=== PATIENT | female | born 1995 | race African-American/Black ===

== ENCOUNTER 2022-05-24 12:31 | Emergency (ER) | payer BC ==
[~2022-05-24] VITALS: Ht 162.5 cm; Wt 90.7 kg
[2022-05-24] MEDS ORDERED: FAMOTIDINE 20 MG (PEPCID) TABLET PO ONE (13:00)
[2022-05-24] MEDS ORDERED: EPINEPHrine INJECTION 1 MG/ML AMP IM ONE (13:00)
[2022-05-24] MEDS ORDERED: diphenhydrAMINE 25 MG TAB (BENADRYL) PO ONE (13:00)
--- NOTE | 2022-05-24 13:05 | ED Integumentary General ---
General Chief Complaint: Allergic Reaction Stated Complaint: ALLERGIC REACTION Source: patient Exam Limitations: no limitations History of Present Illness Date Seen by Provider: May 24, 2022 Time Seen by Provider: 13:02 Initial Comments Patient is a 26-year-old female presents ED with allergic reaction. She states Tuesday she spent the day outside. She is highly allergic to grass , some trees. She states she started to develop a itchy rash on the legs. The spread to the chest, shoulders, face. Reports continue itchiness and rash. Rash is red without any blisters, pustules. she has been taken Benadryl and Zyrtec with very minimal improvement. She noticed some swelling of the extremities. She states she has used her EpiPen in the past 1 year ago. Her EpiPen was . She states she cannot take steroids as it makes it worse. She denies of any bug bites. She denies of any shortness of breath, chest pain, shortness of breath, nausea, vomiting, diarrhea. She is requesting EpiPen as this is the only thing that helps with her severe reaction. Allergies and Home Medications Allergies Coded Allergies: No Known Drug Allergies (Unverified , 05/24/22) Patient Home Medication List Home Medication List Reviewed: Yes Epinephrine (Epipen) 0.3 Mg/0.3 Ml Auto.injct, 0.3 MG IJ ONCE Prescribed by: RICARDO ALFARO on 05/24/22 1450 Review of Systems Review of Systems Constitutional: No chills, No diaphoresis, No malaise, No weakness EENTM: No blurred vision, No double vision Respiratory: No cough, No dyspnea on exertion Cardiovascular: No chest pain Gastrointestinal: No abdominal pain, No diarrhea, No nausea, No vomiting Genitourinary: No decreased output, No discharge Musculoskeletal: No back pain, No joint pain Skin: change in color, pruritus, rash Psychiatric/Neurological: Denies Anxiety, Denies Depressed Endocrine: Denies Flushing All Other Systems Reviewed Negative Unless Noted: Yes Past Gvbqasl-Vwddey-Sfehtk Hx Patient Social History Tobacco Use?: No Use of E-Cig and/or Vaping dev: No Substance use?: No Alcohol Use?: No Pt feels they are or have been: No Immunizations Up To Date Influenza Vaccine Up-to-Date: Yes; Up-to-Date First/Initial COVID19 Vaccinat: declined Physical Exam Vital Signs Vital Signs - First Documented 05/24/22 12:31 Temp 35.7 Pulse 68 Resp 18 B/P (MAP) 117/71 (86) Pulse Ox 98 O2 Delivery Room Air Capillary Refill : General Appearance: WD/WN, no apparent distress HEENT: PERRL/EOMI, normal ENT inspection, TMs normal, pharynx normal Neck: non-tender, full range of motion, supple, normal inspection Cardiovascular: regular rate, rhythm, no edema, no gallop, no JVD, no murmur Respiratory: chest non-tender, lungs clear, normal breath sounds, no respiratory distress, no accessory muscle use Gastrointestinal: normal bowel sounds, non tender, soft, no organomegaly, no pulsatile mass Back: normal inspection, no CVA tenderness Extremities: normal range of motion, non-tender, normal inspection, no pedal edema Neurologic/Psychiatric: esthetician spa II-XII nml as tested, no motor/sensory deficits, a lert, normal mood/affect, oriented x 3 Skin: other (Diffuse erythematous papular macular edematous rash. Noted on the lower extremities, chest, upper back, shoulders and face) Skin Problem Location: generalized Progress/Results/Core Measures Results/Orders My Orders Orders - NIGHAT CONDE Epinephrine 1 Mg Injection (Adrenalin I (05/24/22 13:00) Famotidine Tablet (Pepcid Tablet) (05/24/22 13:00) Diphenhydramine Tablet (Benadryl Tablet) (05/24/22 13:00) Medications Given in ED Current Medications Medications Dose Ordered Sig/Nguyen Route Start Time Stop Time Status Last Admin Dose Admin Diphenhydramine HCl 25 mg ONCE ONCE PO 05/24/22 13:00 05/24/22 13:02 DC 05/24/22 13:14 25 MG Epinephrine HCl 0.3 mg ONCE ONCE IM 05/24/22 13:00 05/24/22 13:02 DC 05/24/22 13:14 0.3 MG Famotidine 40 mg ONCE ONCE PO 05/24/22 13:00 05/24/22 13:02 DC 05/24/22 13:15 40 MG Vital Signs/I&O 05/24/22 05/24/22 12:31 14:59 Temp 35.7 Pulse 68 61 Resp 18 20 B/P (MAP) 117/71 (86) 109/69 Pulse Ox 98 97 O2 Delivery Room Air Departure Communication (PCP) Patient presents ED with allergic reaction. She states she is highly allergic to grass and in some trees outside. She was outside on Tuesday. No evidence of pustules, vesicles. Erythematous edematous diffuse rash. No shortness of breath. She states she cannot take steroids as this makes her rash worse and does not tolerate steroids. She has been taking Zyrtec and Benadryl. Was given dose of Pepcid and Benadryl here. Patient was requesting an EpiPen which was provided here 0.3 IM. She was observed here. Improvement of the rash. Patient was observed without any acute changes. Patient requesting be discharged. Will discharge with an EpiPen. Continue with Benadryl. If any worsening symptoms return back to ED for further evaluation. Outpatient follow-up. If any worsening symptoms such as difficulty breathing, swelling to return back to ED Impression Primary Impression: Allergic reaction Disposition: 01 HOME, SELF-CARE Condition: Stable Departure-Patient Inst. Decision time for Depature: 14:48 Referrals: [facility] – [place] NO,LOCAL PHYSICIAN (PCP) Primary Care Physician Patient Instructions: Allergic Reaction ED Scripts Epinephrine (Epipen) 0.3 Mg/0.3 Ml Auto.injct 0.3 MG IJ ONCE for Rash, #1 ML Prov: NIGHAT CONDE 05/24/22 NIGHAT CONDE May 24, 2022 13:05
[2022-05-24] MEDS ORDERED: EPIN0.3P2 IJ (14:50)
[2022-05-24 14:59] VITALS: BP 109/69
== END 2022-05-24 15:00 | disposition home or self-care (01) ==
LOC: ER 12:34
DX: T78.40XA Allergy, unspecified, initial encounter (principal); Z28.310 Unvaccinated for COVID-19
CPT/HCPCS: 99284